=== PATIENT | female | born 1970 | race Caucasian/White ===

== ENCOUNTER 2021-04-07 10:57 | Day surgery (SDC) | payer OTHER ==
[2021-04-07] MEDS ORDERED: Depo-Medrol 40 MG/ML IM ONE (10:58)
[2021-04-07] MEDS ORDERED: BUPIVACAINE 0.5% VIAL IJ ONE (10:58)
[2021-04-07] MEDS ORDERED: Xylocaine 1% Vial 30 ML PF IJ ONE (10:58)
[2021-04-07] MEDS ORDERED: DIPRIVAN 200 MG/20 ML IV ONE (13:27)
[2021-04-07] MEDS ORDERED: Xylocaine-Mpf 2% 5 Ml Vial ONE (13:31)
[2021-04-07] MEDS ORDERED: Lactated Ringers 1,000 ML IV ONE (14:06)
--- NOTE | 2021-04-07 14:40 | XRAY ---
Indication: Right hip and right greater trochanter bursa injections. Intraoperative fluoroscopy provided for 20 seconds. 2 digital spot images submitted for interpretation demonstrates needle tip projecting lateral to the right femur neck and greater trochanter. Small amount of contrast injected for both needle tip placement. Correlate with intraoperative findings/report.
--- NOTE | 2021-04-07 15:08 | XRAY ---
20 seconds fluoroscopy time in surgery for injections ogf the greater trochanter and intra-articular joint spaces of the right hip.
== END 2021-04-07 13:57 | disposition home or self-care (01) ==
LOC: SDC-PAIN 10:57
PROVIDERS: ATTEND Psychiatry & Neurology Pain Medicine
DX: M16.11 Unilateral primary osteoarthritis, right hip (principal); M70.61 Trochanteric bursitis, right hip
CPT/HCPCS: 20610; 73502; 77002; J1030; J2001; J2704; Q9966